=== PATIENT | female | born 1995 | race American Indian/Alaskan Native ===

== ENCOUNTER 2017-01-12 17:54 | Emergency (ER) | payer MEDICAID ==
[2017-01-12] MEDS ORDERED: CLEOCIN 600 MG/50 mL 600 MG/50 ML BAG IV ONE (21:13)
[2017-01-12] MEDS ORDERED: TORADOL IV ONE (21:16)
--- NOTE | 2017-01-12 21:17 | Emergency Department Report ---
ED ENT HPI - General Chief complaint: Dental/Oral Stated complaint: SWOLLEN MOUTH Time Seen by Provider: 01/12/17 21:07 Source: patient Mode of arrival: Ambulatory Limitations: No Limitations - History of Present Illness Initial comments: 21-year-old -[place] female comes in today for complaint of toothache times a while patient states patient reports she had an appointment today about 1430 but missed that appointment. She comes in now with right side of face swollen times this morning. Patient does report she has a tooth that is broken. The tooth is been like this since she's been in pain for about greater than 6 months but reports she was not able to do anything about it since she was . Patient denies any fever no difficulty swallowing or no difficulty talking. MD complaint: tooth pain - Related Data Previous Rx's Medication Instructions Recorded Last Taken Type Clindamycin [Clindamycin CAP] 300 mg PO Q8H #30 cap 01/12/17 Unknown Rx HYDROcodone/APAP 5-325 [Wilmore 1 each PO Q6HR PRN #12 tablet 01/12/17 Unknown Rx 5/325] Ibuprofen [Motrin] 800 mg PO Q8HR PRN #30 tablet 01/12/17 Unknown Rx Allergies Allergy/AdvReac Type Severity Reaction Status Date / Time No Known Allergies Allergy Unverified 01/12/17 18:51 ED Dental HPI - General Chief complaint: Dental/Oral Stated complaint: SWOLLEN MOUTH Time Seen by Provider: 01/12/17 21:07 Source: patient Mode of arrival: Ambulatory Limitations: No Limitations - Related Data Previous Rx's Medication Instructions Recorded Last Taken Type Clindamycin [Clindamycin CAP] 300 mg PO Q8H #30 cap 01/12/17 Unknown Rx HYDROcodone/APAP 5-325 [Wilmore 1 each PO Q6HR PRN #12 tablet 01/12/17 Unknown Rx 5/325] Ibuprofen [Motrin] 800 mg PO Q8HR PRN #30 tablet 01/12/17 Unknown Rx Allergies Allergy/AdvReac Type Severity Reaction Status Date / Time No Known Allergies Allergy Unverified 01/12/17 18:51 ED Review of Systems ROS: Stated complaint: SWOLLEN MOUTH Other details as noted in HPI Constitutional: fever ENT: dental pain Respiratory: denies: cough, shortness of breath, wheezing Cardiovascular: denies: chest pain, palpitations Endocrine: no symptoms reported Gastrointestinal: denies: abdominal pain, nausea, diarrhea Genitourinary: denies: urgency, dysuria, discharge Musculoskeletal: denies: back pain, joint swelling, arthralgia Skin: denies: rash, lesions Neurological: denies: headache, weakness, paresthesias Psychiatric: denies: anxiety, depression Hematological/Lymphatic: denies: easy bleeding, easy bruising ED Past Medical Hx - Past Medical History Previous Medical History?: No - Surgical History Past Surgical History?: No - Social History Smoking Status: Never Smoker Substance Use Type: None - Medications Home Medications: Home Medications Medication Instructions Recorded Confirmed Last Taken Type Clindamycin [Clindamycin CAP] 300 mg PO Q8H #30 cap 01/12/17 Unknown Rx HYDROcodone/APAP 5-325 [Wilmore 1 each PO Q6HR PRN #12 tablet 01/12/17 Unknown Rx 5/325] Ibuprofen [Motrin] 800 mg PO Q8HR PRN #30 tablet 01/12/17 Unknown Rx ED Physical Exam - General Limitations: No Limitations - Head Head exam: Present: atraumatic, normocephalic, other (right side of face and lower jaw swollen moderate to severe) - Eye Eye exam: Present: normal appearance, PERRL, EOMI - ENT ENT exam: Present: mucous membranes moist - Expanded ENT Exam Expanded Teeth exam: Present: dental tenderness # (30) Throat exam: Positive: normal inspection. Negative: tonsillomegaly, tonsillar exudate - Neck Neck exam: Present: normal inspection, full ROM. Absent: lymphadenopathy - Respiratory Respiratory exam: Present: normal lung sounds bilaterally - Cardiovascular Cardiovascular Exam: Present: regular rate, normal rhythm - Extremities Exam Extremities exam: Present: normal inspection ED Course Vital Signs 01/12/17 18:47 Temperature 99.0 F Pulse Rate 67 Respiratory 17 Rate Blood Pressure 122/74 O2 Sat by Pulse 100 Oximetry ED Medical Decision Making - Lab Data Result diagrams: 01/12/17 21:20 01/12/17 21:20 - Radiology Data Radiology results: report reviewed, image reviewed FINDINGS: There is a small area of lucency at the root of the 1st right mandibular molar, suggesting periapical/dental abscess. There is adjacent right-sided facial soft tissue swelling. Although there is somewhat limited evaluation of adjacent soft tissues due to streak artifact from dental amalgam, no drainable soft tissue fluid collection is seen. There are asymmetric mildly enlarged right cervical lymph nodes, which are likely reactive. IMPRESSION: Soft tissue swelling adjacent to the right mandible may be related to cellulitis secondary to adjacent periapical/dental abscess of the right 1st mandibular molar. No drainable soft tissue abscess is seen. Transcribed By: DANIELLE Dictated By: OLIVER EASON M.D. Electronically Authenticated By: OLIVER EASON M.D. Signed Date/Time: 01/12/17 6035 - Medical Decision Making Patient has been evaluated by this provider fast track. Discussed with patient that we will place an IV to give her IV antibiotics and IV pain medication as well as we will do a CAT scan of her face to rule out any abscess or abnormalities. Patient verbalized understanding. Dr. Zambrano was able to evaluate this patient as well. Critical care attestation.: If time is entered above; I have spent that time in minutes in the direct care of this critically ill patient, excluding procedure time. ED Disposition Clinical Impression: Dental abscess Disposition: DISCHARGED TO HOME OR SELFCARE Is pt being admited?: No Does the pt Need Aspirin: No Condition: Stable Instructions: Dental Abscess (ED) Additional Instructions: Complete antibiotics as prescribed. I have listed several dentists for you to follow-up. Please do not operate heavy machinery while taking the Wilmore. Please take Motrin one tablet by mouth 3 times a day when necessary. Prescriptions: Clindamycin [Clindamycin CAP] 300 mg PO Q8H #30 cap HYDROcodone/APAP 5-325 [Wilmore 5/325] 1 each PO Q6HR PRN #12 tablet PRN Reason: Pain Ibuprofen [Motrin] 800 mg PO Q8HR PRN #30 tablet PRN Reason: Pain Referrals: PRIMARY CARE,MD [Primary Care Provider] - 3-5 Days [facility] [Outside] - 3-5 Days Forms: Work/School Release Form(ED)
[2017-01-12 21:31] LABS: Basophils % (Auto) 0.7 % (0.0-1.8); Eosinophils % (Auto) 0.4 % (0.0-4.3); Hematocrit 39.1 % (30.3-42.9); Mean Corpuscular HGB Conc 33 % (30-34); Mean Corpuscular Hemoglobin 29 pg (28-32); Mean Corpuscular Volume 86 fl (79-97); Platelet Count 257 K/mm3 (140-440); Red Blood Count 4.54 M/mm3 (3.65-5.03); Red Cell Distribution Width 13.9 % (13.2-15.2); White Blood Count 8.5 K/mm3 (4.5-11.0)
[2017-01-12 21:41] LABS: Anion Gap 17 mmol/L; BUN/Creatinine Ratio 14.28; Blood Urea Nitrogen 10 mg/dL (7-17); Calcium 9.3 mg/dL (8.4-10.2); Carbon Dioxide 24 mmol/L (22-30); Chloride 100.3 mmol/L (98-107); Glucose 91 mg/dL (65-100); Potassium 4.1 mmol/L (3.6-5.0); Sodium 137 mmol/L (137-145)
--- NOTE | 2017-01-12 23:10 | Cat Scan Report ---
FINAL REPORT PROCEDURE: CT FACIAL BONES W CON TECHNIQUE: Computerized tomography of the facial bones and soft tissues with axial and coronal sections was performed from the cranial aspect of the frontal sinuses to the caudal portion of the mandible following the IV injection of iodinated nonionic contrast. HISTORY: facial swelling COMPARISON: No prior studies are available for comparison. FINDINGS: There is a small area of lucency at the root of the 1st right mandibular molar, suggesting periapical/dental abscess. There is adjacent right-sided facial soft tissue swelling. Although there is somewhat limited evaluation of adjacent soft tissues due to streak artifact from dental amalgam, no drainable soft tissue fluid collection is seen. There are asymmetric mildly enlarged right cervical lymph nodes, which are likely reactive. IMPRESSION: Soft tissue swelling adjacent to the right mandible may be related to cellulitis secondary to adjacent periapical/dental abscess of the right 1st mandibular molar. No drainable soft tissue abscess is seen.
[2017-01-12 23:51] VITALS: BP 118/76
== END 2017-01-12 23:51 | disposition home or self-care (01) ==
LOC: ED 17:54
DX: K04.7 Periapical abscess without sinus (principal)
CPT/HCPCS: 36415; 70487; 80048; 81025; 85025; 96365; 96366; 96375; 99284; J1885; Q9967